=== PATIENT | female | born 1995 | race Caucasian/White ===

== ENCOUNTER 2018-01-26 20:24 | Emergency (ER) | payer OTHER, SELFPAY ==
[2018-01-26 21:26] LABS: Absolute Monocytes 0.5 K/uL (0.1-1.3); Absolute Neutrophil 3.1 K/uL (1.8-8.0); Basophils % 0.4 % (0-1.3); Hematocrit 39.8 % (36.0-45.0); Lymphocytes % 21.1 % (15.3-44.8); MCH 30.9 pg (27.0-35.0); MCV 89.1 fL (80-100); MPV 8.5 fL (7.6-11.3); Monocytes % 10.2 % (3.3-12.3); RBC Red Blood Cell Count 4.47 M/uL (3.86-4.86)
[2018-01-26 21:37] LABS: Urine Blood TRACE (NEG); Urine Glucose NEGATIVE (NEG); Urine Protein NEGATIVE (NEG); Urine Specific Gravity >1.030 (1.005-1.030)
[2018-01-26 21:47] LABS: ALT/SGPT 36 U/L (12-78); AST/SGOT 26 U/L (15-37); Albumin 4.5 g/dL (3.4-5.0); Alkaline Phosphatase 64 U/L (45-117); BUN Blood Urea Nitrogen 11 mg/dL (7-18); Bicarbonate 27 mmol/L (21-32); Bilirubin Direct 0.1 mg/dL (0-0.2); Bilirubin Total 0.5 mg/dL (0.2-1.0); Glucose Level 91 mg/dL (74-106); Lipase 89 U/L (73-393); Potassium 3.5 mmol/L (3.5-5.1); Protein, Total 8.1 g/dL (6.4-8.2); Sodium Level 141 mmol/L (136-145)
[2018-01-26] MEDS ORDERED: NA CHLORIDE 0.9% 1,000 ML ONE (22:07)
[2018-01-26] MEDS ORDERED: PROMETHAZINE 25 MG/ML VIAL ONE (22:07)
--- NOTE | 2018-01-26 22:32 | ER ---
Nurse's Notes [facility] Name: Ariadna Roca Age: 22 yrs Sex: Female : 1995 Arrival Date: 01/26/2018 Time: 20:27 Bed 27 Private MD: Diagnosis: Gastroenteritis Presentation: 01/26 20:31 Presenting complaint: Patient states: that she is having upper abd pain, nausea, fc vomiting and diarrhea that started this am. Also having hot flashes when her stomach starts to ache. Transition of care: patient was not received from another setting of care. Onset of symptoms was January 26, 2018. Risk Assessment: Do you want to hurt yourself or someone else? Patient reports no desire to harm self or others. Care prior to arrival: Medication(s) given: Tylenol, last at 1000. 20:31 Method Of Arrival: Ambulatory fc 20:31 Acuity: SABRINA 3 fc 20:40 Initial Sepsis Screen: Does the patient meet any 2 criteria? No. Patient's initial kr2 sepsis screen is negative. Does the patient have a suspected source of infection? No. Patient's initial sepsis screen is negative. 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 - Social history:: Smoking status: Patient/guardian denies using tobacco. - Ebola Screening: : Patient negative for fever greater than or equal to 101.5 degrees Fahrenheit, and additional compatible Ebola Virus Disease symptoms Patient denies exposure to infectious person Patient denies travel to an Ebola-affected area in the 21 days before illness onset. Screenin:40 Abuse screen: Denies threats or abuse. Denies injuries from another. Nutritional kr2 screening: No deficits noted. Tuberculosis screening: No symptoms or risk factors identified. Fall Risk None identified. Assessment: 20:40 General: Appears in no apparent distress. comfortable, well groomed, well developed, kr2 well nourished, Behavior is calm, cooperative, appropriate for age. Pain: Complains of pain in abdomen Pain does not radiate. Pain currently is 0 out of 10 on a pain scale. at worst was 6 out of 10 on a pain scale. Quality of pain is described as aching, crampy, Pain began this morning Is intermittent, Alleviated by rest, Aggravated by increased activity. Neuro: Level of Consciousness is awake, alert, obeys commands, Oriented to person, place, time, situation. Cardiovascular: Capillary refill < 3 seconds in bilateral fingers Patient's skin is warm and dry. Respiratory: Airway is patent Respiratory effort is even, unlabored, Respiratory pattern is regular, symmetrical. GI: Abdomen is flat, non-distended, Bowel sounds present X 4 quads. Abd is soft X 4 quads Abd is non tender X 4 quads. GI: Reports diarrhea, nausea, vomiting, since this morning. : Denies burning with urination. Derm: Skin is intact, is healthy with good turgor, Skin is pink, warm \T\ dry. Musculoskeletal: Circulation, motion, and sensation intact. 21:40 Reassessment: Patient appears in no apparent distress at this time. Patient and/or kr2 family updated on plan of care and expected duration. Pain level reassessed. Patient is alert, oriented x 3, equal unlabored respirations, skin warm/dry/pink. Patient denies pain at this time. 22:05 Reassessment: Patient appears in no apparent distress at this time. Patient and/or kr2 family updated on plan of care and expected duration. Pain level reassessed. Patient is alert, oriented x 3, equal unlabored respirations, skin warm/dry/pink. Patient denies pain at this time, complains of nausea, medicated as ordered. 23:00 Reassessment: Patient appears in no apparent distress at this time. Patient and/or kr2 family updated on plan of care and expected duration. Pain level reassessed. Patient is alert, oriented x 3, equal unlabored respirations, skin warm/dry/pink. Patient denies pain at this time. Patient states feeling better. Vital Signs: 20:33 BP 131 / 71; Pulse 84; Resp 18; Temp 98.8(O); Pulse Ox 100% on R/A; Weight 53.98 kg fc (R); Height 5 ft. 0 in. (152.40 cm) (R); Pain 6/10; 22:09 BP 105 / 71; Pulse 61; Resp 18; Pulse Ox 100% on R/A; mg2 22:15 BP 105 / 71; Pulse 68; Resp 16; Pulse Ox 100% ; kr2 23:00 BP 110 / 66; Pulse 70; Resp 16; Pulse Ox 99% on R/A; kr2 20:33 Body Mass Index 23.24 (53.98 kg, 152.40 cm) ED Course: 20:27 Patient arrived in ED. am2 20:32 Triage completed. 20:33 Arm band placed on Patient placed in an exam room, on a stretcher. 20:37 Henry Finn PA is PHCP. jr8 20:37 Pavel Keating MD is Attending Physician. jr8 20:40 Patient has correct armband on for positive identification. Bed in low position. Call kr2 light in reach. Side rails up X 1. Adult w/ patient. Pulse ox on. NIBP on. Door closed. Warm blanket given. Head of bed elevated. 21:10 Diane Gilbert, ALEENA is Primary Nurse. kr2 21:15 Urine collected: clean catch specimen, clear. Inserted saline lock: 20 gauge in right kr2 antecubital area, using aseptic technique. Blood collected. 23:00 No provider procedures requiring assistance completed. IV discontinued, intact, kr2 bleeding controlled, No redness/swelling at site. Pressure dressing applied. Administered Medications: 22:04 Drug: NS 0.9% 1000 ml Route: IV; Rate: 1000 ml; Site: right antecubital; kr2 22:05 Drug: Phenergan 12.5 mg Route: IVP; Site: right antecubital; kr2 Outcome: 22:31 Discharge ordered by . jr8 23:00 Discharged to home ambulatory, with family. kr2 23:00 Condition: good 23:00 Discharge instructions given to patient, family, Instructed on discharge instructions, follow up and referral plans. medication usage, Demonstrated understanding of instructions, follow-up care, medications, Prescriptions given X 1. 23:15 Patient left the ED. rg2 Signatures: Nava Solano rg2 Daxa Boss RN RN Henry Finn PA PA jr8 Latesha Ramires am2 Diane Gilbert RN RN kr2 Claudio Santana RN RN mg2 Corrections: (The following items were deleted from the chart) 22:14 22:05 Reassessment: Patient denies pain at this time, complains of nausea, medicated as kr2 ordered kr2
--- NOTE | 2018-01-26 22:32 | EDPHYS ---
Physician Documentation [facility] Name: Ariadna Roca Age: 22 yrs Sex: Female : 1995 Arrival Date: 01/26/2018 Time: 20:27 Bed 27 Private MD: ED Physician Pavel Keating HPI: 01/26 21:06 This 22 yrs old Female presents to ER via Ambulatory with complaints of jr8 Nausea/Vomiting, Abdominal Pain. 21:06 The patient presents to the emergency department with nausea, vomiting, diarrhea. jr8 Onset: The symptoms/episode began/occurred acutely, today. Possible causes: unknown. The symptoms are aggravated by food , The symptoms are alleviated by nothing. Associated signs and symptoms: Pertinent positives: abdominal pain. Severity of symptoms: At their worst the symptoms were moderate in the emergency department the symptoms are unchanged. The patient has not experienced similar symptoms in the past. The patient has not recently seen a physician. 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 - Social history:: Smoking status: Patient/guardian denies using tobacco. - Ebola Screening: : Patient negative for fever greater than or equal to 101.5 degrees Fahrenheit, and additional compatible Ebola Virus Disease symptoms Patient denies exposure to infectious person Patient denies travel to an Ebola-affected area in the 21 days before illness onset. ROS: 21:06 Eyes: Negative for injury, pain, redness, and discharge, ENT: Negative for injury, jr8 pain, and discharge, Neck: Negative for injury, pain, and swelling, Cardiovascular: Negative for chest pain, palpitations, and edema, Respiratory: Negative for shortness of breath, cough, wheezing, and pleuritic chest pain, Back: Negative for injury and pain, MS/Extremity: Negative for injury and deformity, Skin: Negative for injury, rash, and discoloration, Neuro: Negative for headache, weakness, numbness, tingling, and seizure. 21:06 Abdomen/GI: Positive for nausea, vomiting, and diarrhea, abdominal cramps, Negative for abdominal distension, anorexia, dysphagia, hematemesis, black/tarry stool, rectal pain, rectal bleeding, bowel incontinence. Exam: 21:06 Eyes: Pupils equal round and reactive to light, extra-ocular motions intact. Lids and jr8 lashes normal. Conjunctiva and sclera are non-icteric and not injected. Cornea within normal limits. Periorbital areas with no swelling, redness, or edema. ENT: Nares patent. No nasal discharge, no septal abnormalities noted. Tympanic membranes are normal and external auditory canals are clear. Oropharynx with no redness, swelling, or masses, exudates, or evidence of obstruction, uvula midline. Mucous membranes moist. Neck: Trachea midline, no thyromegaly or masses palpated, and no cervical lymphadenopathy. Supple, full range of motion without nuchal rigidity, or vertebral point tenderness. No Meningismus. Cardiovascular: Regular rate and rhythm with a normal S1 and S2. No gallops, murmurs, or rubs. Normal PMI, no JVD. No pulse deficits. Respiratory: Lungs have equal breath sounds bilaterally, clear to auscultation and percussion. No rales, rhonchi or wheezes noted. No increased work of breathing, no retractions or nasal flaring. Abdomen/GI: Soft, non-tender, with normal bowel sounds. No distension or tympany. No guarding or rebound. No evidence of tenderness throughout. Back: No spinal tenderness. No costovertebral tenderness. Full range of motion. Skin: Warm, dry with normal turgor. Normal color with no rashes, no lesions, and no evidence of cellulitis. MS/ Extremity: Pulses equal, no cyanosis. Neurovascular intact. Full, normal range of motion. Neuro: Awake and alert, GCS 15, oriented to person, place, time, and situation. Cranial nerves II-XII grossly intact. Motor strength 5/5 in all extremities. Sensory grossly intact. Cerebellar exam normal. Normal gait. Vital Signs: 20:33 BP 131 / 71; Pulse 84; Resp 18; Temp 98.8(O); Pulse Ox 100% on R/A; Weight 53.98 kg fc (R); Height 5 ft. 0 in. (152.40 cm) (R); Pain 6/10; 22:09 BP 105 / 71; Pulse 61; Resp 18; Pulse Ox 100% on R/A; mg2 22:15 BP 105 / 71; Pulse 68; Resp 16; Pulse Ox 100% ; kr2 23:00 BP 110 / 66; Pulse 70; Resp 16; Pulse Ox 99% on R/A; kr2 20:33 Body Mass Index 23.24 (53.98 kg, 152.40 cm) fc MDM: 20:42 Patient medically screened. jr8 22:30 Data reviewed: vital signs, nurses notes, lab test result(s), and as a result, I will jr8 discharge patient. Data interpreted: Pulse oximetry: on room air is 100 %. Interpretation: normal. Counseling: I had a detailed discussion with the patient and/or guardian regarding: the historical points, exam findings, and any diagnostic results supporting the discharge/admit diagnosis, lab results, the need for outpatient follow up, a family practitioner, to return to the emergency department if symptoms worsen or persist or if there are any questions or concerns that arise at home. Response to treatment: the patient's symptoms have markedly improved after treatment, patient is well hydrated. 01/26 20:43 Order name: Basic Metabolic Panel; Complete Time: 21:57 01/26 20:43 Order name: CBC with Diff; Complete Time: 21:42 01/26 20:43 Order name: Creatinine for Radiology; Complete Time: :57 01/26 20:43 Order name: Hepatic Function; Complete Time: :57 01/26 20:43 Order name: Lipase; Complete Time: :01/26 21:28 Order name: Urine Dipstick--Ancillary (enter results); Complete Time: 21:42 rg2 01/26 20:43 Order name: Urine Test (obtain specimen); Complete Time: 21:23 01/26 20:43 Order name: IV Saline Lock; Complete Time: 21:23 01/26 20:43 Order name: Labs collected and sent; Complete Time: 21:23 01/26 20:43 Order name: Urine Dipstick-Ancillary (obtain specimen); Complete Time: :01/26 21:28 Order name: Urine --Ancillary (enter results); Complete Time: 21:42 2 Administered Medications: 22:04 Drug: NS 0.9% 1000 ml Route: IV; Rate: 1000 ml; Site: right antecubital; kr2 22:05 Drug: Phenergan 12.5 mg Route: IVP; Site: right antecubital; kr2 Disposition: 01/27 09:23 Co-signature as Attending Physician, Pavel Keating MD I agree with the assessment and [facility] plan of care. Disposition: 01/26/18 22:31 Discharged to Home. Impression: Gastroenteritis. - Condition is Stable. - Discharge Instructions: Viral Gastroenteritis, Adult. - Prescriptions for Zofran 4 mg Oral Tablet - take 1 tablet by ORAL route every 12 hours As needed; 20 tablet. - Medication Reconciliation Form, Thank You Letter, Antibiotic Education, Prescription Opioid Use, Family Work Release form. - Follow up: Private Physician; When: 5 - 6 days; Reason: Recheck today's complaints, Continuance of care, Re-evaluation by your physician. - Problem is new. - Symptoms have improved. Signatures: Dispatcher [employer] EDMS Nava Solano rg2 Pavel Keating MD MD cha Chretien, Felicia, RN RN Henry Ho PA PA jr8 Diane Gilbert RN RN kr2 Corrections: (The following items were deleted from the chart) 01/26 23:15 22:31 01/26/2018 22:31 Discharged to Home. Impression: Gastroenteritis. Condition is rg2 Stable. Forms are Medication Reconciliation Form, Thank You Letter, Antibiotic Education, Prescription Opioid Use. Follow up: Private Physician; When: 5 - 6 days; Reason: Recheck today's complaints, Continuance of care, Re-evaluation by your physician. Problem is new. Symptoms have improved. jr8
[2018-01-27 01:01] VITALS: TEMP 98.8; O2SAT 100
[2018-01-27 01:02] VITALS: BP 105/71
== END 2018-01-26 23:15 | disposition home or self-care (01) ==
LOC: ER 20:24
DX: K52.9 Noninfective gastroenteritis and colitis, unspecified (principal)
CPT/HCPCS: 36415; 80048; 80076; 81003; 81025; 83690; 85025; 96374; 99284; J2550; J7030